=== PATIENT | female | born 1965 | race Caucasian/White ===

== ENCOUNTER 2018-09-25 20:05 | Emergency (ER) | payer MEDICARE, OTHER ==
[~2018-09-25] VITALS: Ht 157.5 cm; Wt 77.1 kg
[2018-09-25] MEDS ORDERED: TETANUS,DIPTH,PERTUSS P/F (BOOSTRIX) 0.5 ML VIAL IM ONE (21:00)
--- NOTE | 2018-09-25 21:10 | NUR ---
wounds cleaned with soap and water
--- NOTE | 2018-09-25 21:10 | ED Upper Extremity ---
General Chief Complaint: Bite-Animal/Human/Insect Stated Complaint: RT HAND DOG BITE Nursing Triage Note: pt trying to break up a fight between dogs and was bitten on right hand, minor abrasions noted, no bleeding, pt states dogs up to date on vaccines, pt unsure of her tetanus Nursing Sepsis Screen: No Definite Risk Source: patient History of Present Illness Date Seen by Provider: Sep 25, 2018 Time Seen by Provider: 20:51 Initial Comments 53 yo F presents with complaint of dog bite to her right hand and thumb. She has superficial abrasions to her thumb with some red costello on her hand that she reports are from when her dog bit her. She was trying to break up a fight between her dog and another dog. Her dog had bitten down on her hand as she was trying to break them up. She has already spoke with [employer]. She has no active bleeding now. She is not sure of her last tetanus. She was told that the dog was up to date on it's shots as it was from a family member. [employer] took the dog to keep it in quarantine for now. Allergies and Home Medications Allergies Coded Allergies: No Known Drug Allergies (Unverified , 09/25/18) Home Medications Amoxicillin/Potassium Clav 1 Each Tablet, 1 EACH PO BID Prescribed by: JORJE KUMAR on 09/25/180 Patient Home Medication List Home Medication List Reviewed: Yes Review of Systems Constitutional: No chills, No fever EENTM: no symptoms reported Respiratory: no symptoms reported Cardiovascular: no symptoms reported Gastrointestinal: no symptoms reported Genitourinary: no symptoms reported Musculoskeletal: other (mild swelling around the abrasions on her right thumb and hand ) Skin: see HPI, other (superficial abrasions on right thumb that she states are from the dog biting her) Past Fofqage-Opxkhh-Qoqllp Hx Past Med/Social Hx: Reviewed Nursing Past Med/Soc Hx Patient Social History Alcohol Use: Denies Use Recreational Drug Use: No Smoking Status: Current Everyday Smoker Type Used: Cigarettes Recent Foreign Travel: No Contact w/Someone Who Travel: No Recent Infectious Disease Expo: No Recent Hopitalizations: No Physical Abuse: No Sexual Abuse: No Mistreated: No Fear: No Seasonal Allergies Seasonal Allergies: No Past Medical History Surgeries: Yes Orthopedic Respiratory: No Cardiac: No Neurological: No Genitourinary: No Gastrointestinal: No Musculoskeletal: No Endocrine: No HEENT: No Cancer: No Psychosocial: No Integumentary: No Blood Disorders: No Physical Exam Vital Signs Vital Signs - First Documented 09/25/18 20:31 Temp 99.1 Pulse 94 Resp 20 B/P (MAP) 146/86 (106) Pulse Ox 96 O2 Delivery Room Air Capillary Refill : Less Than 3 Seconds Height, Weight, BMI Height: 5'2.00" Weight: 170lbs. oz. 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 no puncture wounds seen.) Progress/Results/Core Measures Results/Orders My Orders Orders - JORJE KUMAR MD Dipht,Pertuss(Acell),Tet Adult (Boostrix (09/25/18 21:00) Medications Given in ED Current Medications Medications Dose Ordered Sig/Aakash Route Start Time Stop Time Status Last Admin Dose Admin Diphtheria/ Tetanus/Acell Pertussis 0.5 ml ONCE ONCE IM 09/25/18 21:00 09/25/18 21:01 DC 09/25/18 21:06 0.5 ML Vital Signs/I&O 09/25/18 09/25/18 20:31 21:25 Temp 99.1 98.7 Pulse 94 80 Resp 20 16 B/P (MAP) 146/86 (106) 143/83 (103) Pulse Ox 96 97 O2 Delivery Room Air Room Air Blood Pressure Mean: 106 Progress Progress Note : Progress Note update tetanus booster, clean abrasions and dress with antibiotic ointment. Treat with augmentin for animal bite. Counseled to follow up with clinic Departure Impression Primary Impression: Dog bite Qualified Codes: W54.0XXA - Bitten by dog, initial encounter Additional Impression: Abrasion of right hand, initial encounter Disposition: HOME, SELF-CARE Condition: Stable Departure-Patient Inst. Decision time for Depature: 21:05 Referrals: NO,LOCAL PHYSICIAN (PCP) Primary Care Physician Patient Instructions: Animal Bites (DC), Skin Abrasions (DC) Add. Discharge Instructions: Keep wounds clean with soap and water. Apply antibiotic ointment 2 to 3 times a day and may cover with a dressing/band aid Watch for signs of infection and return or go to clinic for further concerns All discharge instructions reviewed with patient and/or family. Voiced understanding. Scripts Amoxicillin/Potassium Clav (Amox Tr-K Clv 875-125 mg Tab) 1 Each Tablet 1 EACH PO BID for dog bite for 7 Days, #14 TAB 0 Refills Prov: JORJE KUMAR MD 09/25/18 JORJE KUMAR MD Sep 25, 2018 21:10
[2018-09-25] MEDS ORDERED: AMOX1TAB12 PO (21:13)
[2018-09-25 21:25] VITALS: BP 143/83
== END 2018-09-25 21:25 | disposition home or self-care (01) ==
LOC: ER FS 20:08
DX: S60.371A Other superficial bite of right thumb, initial encounter (principal); S60.311A Abrasion of right thumb, initial encounter; F17.210 Nicotine dependence, cigarettes, uncomplicated; W54.0XXA Bitten by dog, initial encounter
CPT/HCPCS: 90471; 90715

== ENCOUNTER 2019-02-01 21:23 | Emergency (ER) | payer OTHER ==
[~2019-02-01] VITALS: Ht 157.5 cm; Wt 82.9 kg
[~2019-02-01 21:23] MED LIST: AMOX1TAB12 PO
--- NOTE | 2019-02-01 22:39 | ED Cough/URI ---
General Chief Complaint: Cough/Cold/Flu Symptoms Stated Complaint: COUGH/RAPID HR Nursing Triage Note: pt states cough for 2 weeks, seen in urgent care 2 days ago and started on amoxil and prednisone. pt doesnt think meds are working, states prednisone makes her heart race Sepsis Screen: No Definite Risk Source: patient History of Present Illness Date Seen by Provider: Feb 01, 2019 Time Seen by Provider: 22:39 Initial Comments 53 yo F presenting with over 2 weeks of cough and congestion. She does smoke still. She was seen in urgent care 2 days ago and started on amoxicillin 875 twice a day and prednisone. She feels that the prednisone is making her heart race and that the amoxicillin is not helping. She is coughing constantly and can't rest. She is not running a fever but feels that she has chills at times. She is mostly having a dry cough and not bringing anything up. It is a hacking cough. She feels that she needs a cough syrup to help. Allergies and Home Medications Allergies Coded Allergies: No Known Drug Allergies (Unverified , 09/25/18) Home Medications Amoxicillin/Potassium Clav 1 Each Tablet, 1 EACH PO BID Prescribed by: JORJE KUMAR on 09/25/182112 Promethazine/Phenyleph/Codeine 118 Ml Syrup, 5 ML PO Q6H PRN for COUGH Prescribed by: JORJE KUMAR on 02/02/19 0012 Patient Home Medication List Home Medication List Reviewed: Yes Review of Systems Review of Systems Constitutional: chills; No fever; malaise EENTM: hoarseness, throat pain (from coughing); No epistaxis, No nose congestion Respiratory: cough, dyspnea on exertion; No hemoptysis; short of breath; No stridor; wheezing Cardiovascular: chest pain (from coughing) Gastrointestinal: no symptoms reported Genitourinary: no symptoms reported Musculoskeletal: other (generalized bodyaches) Skin: No rash Psychiatric/Neurological: Anxiety Past Jcajfcm-Yihbjx-Plpagl Hx Past Med/Social Hx: Reviewed Nursing Past Med/Soc Hx Patient Social History Alcohol Use: Denies Use Recreational Drug Use: No Smoking Status: Current Everyday Smoker Type Used: Cigarettes 2nd Hand Smoke Exposure: Yes Recent Foreign Travel: No Contact w/Someone Who Travel: No Recent Infectious Disease Expo: No Recent Hopitalizations: No Physical Abuse: No Sexual Abuse: No Mistreated: No Fear: No Seasonal Allergies Seasonal Allergies: No Past Medical History Surgeries: Yes Orthopedic Respiratory: No Cardiac: No Neurological: No Genitourinary: No Gastrointestinal: No Musculoskeletal: No Endocrine: No HEENT: No Cancer: No Psychosocial: No Integumentary: No Blood Disorders: No Physical Exam Vital Signs - First Documented 02/01/19 21:47 Temp 36.4 Pulse 95 Resp 18 B/P (MAP) 167/80 (109) Pulse Ox 98 O2 Delivery Room Air Capillary Refill : Less Than 3 Seconds Height: 5'2.00" Weight: 170lbs. oz. 77.698928xj; 33.00 BMI Method:Stated General Appearance: mild distress HEENT: PERRL/EOMI, pharyngeal erythema; No tonsillar exudate Neck: non-tender, full range of motion, supple Respiratory: decreased breath sounds, accessory muscle use; No rales; rhonchi; No stridor; wheezing Cardiovascular: normal peripheral pulses, regular rate, rhythm Extremities: normal range of motion, non-tender, normal inspection Neurologic/Psychiatric: alert, oriented x 3 Skin: normal color, warm/dry Progress/Results/Core Measures Suspected Sepsis Recent Fever Within 48 Hours: No Infection Criteria Present: None New/Unexplained Altered Menta: No Sepsis Screen: No Definite Risk SIRS Temperature: Pulse: 95 Respiratory Rate: 18 Blood Pressure 167 /80 Mean: 109 Results/Orders My Orders Orders - JORJE KUMAR MD Albuterol/Ipra Inhalation Soln (Duoneb I (02/01/19 22:49) Svn Small Volume Nebulizer (02/01/19 22:49) Chest Pa/Lat (2 View) (02/01/19 22:49) Rx-Albuterol Inhaler (Rx-Proair) (02/01/19 23:42) Ceftriaxone For Im Use (Rocephin For Im (02/01/19 23:42) Methylprednisolone Acetate Inj (Depo-Med (02/01/19 23:42) Lidocaine 1% Inj 20 Ml (Xylocaine 1% Inj (02/01/19 23:45) Medications Given in ED Current Medications Medications Dose Ordered Sig/Aakash Route Start Time Stop Time Status Last Admin Dose Admin Lidocaine HCl 2.1 ml ONCE ONCE INJ 02/01/19 23:45 02/01/19 23:46 DC 02/01/19 23:53 2.1 ML Vital Signs/I&O 02/01/19 02/02/19 21:47 00:17 Temp 36.4 Pulse 95 84 Resp 18 18 B/P (MAP) 167/80 (109) 144/97 Pulse Ox 98 97 O2 Delivery Room Air Room Air Capillary Refill : Less Than 3 Seconds Blood Pressure Mean: 109 Progress Note #1: Progress Note Obtain a chest x-ray to evaluate her lungs. Try a DuoNeb breathing treatment see if that will help with her cough. Progress Note #2: Progress Note On my review of the 2 view chest x-ray she does not have any definite infiltrate. Give a Rocephin 1 g IM injection to help boost the amoxicillin. Stop the prednisone so she feels that it is making her heart race and given Depo-Medrol shots of to slow release to help try and prevent some of the side effects. Since the DuoNeb that helped with her cough and shortness of breath we will prescribe a albuterol inhaler. Since she is asking for cough syrup will prescribe couple of days of cough syrup to try and help her sleep. Encouraged fluids and rest. Advised to use a humidifier at the bedside. Counseled to stop smoking Departure Impression Primary Impression: Chronic bronchitis with acute exacerbation Additional Impressions: Cough Tobacco abuse Disposition: 01 HOME, SELF-CARE Condition: Stable Departure-Patient Inst. Decision time for Depature: 23:50 Referrals: NO,LOCAL PHYSICIAN (PCP) Primary Care Physician Patient Instructions: Bacterial Upper Respiratory Infection, Adult (DC), Cough, Adult (DC), Exacerbation of COPD (DC), Quitting Smoking Add. Discharge Instructions: Finish your course of antibiotics. You may stop the Prednisone as you got a slow release steroid shot tonight so it would not cause your heart to race. Use the inhaler to help with cough and congestion Use a humidifier at the bedside to help keep your airway moist to improve your cough Follow up with clinic if not improving this next week. All discharge instructions reviewed with patient and/or family. Voiced understanding. Scripts Promethazine/Phenyleph/Codeine (Lqbcsdrrexef-IT-Pksxboi Syrup) 118 Ml Syrup 5 ML PO Q6H PRN for COUGH for 5 Days, #100 ML 0 Refills Prov: JORJE KUMAR MD 02/02/19 JORJE KUMAR MD Feb 01, 2019 22:39
[2019-02-01] MEDS ORDERED: RT-ALBUTEROL/IPRATROPIUM 3 ML (DUONEB) VIAL INH STA (22:49)
[2019-02-01] MEDS ORDERED: methylPREDNISolone 80 MG/ML (DEPO MEDROL) VIAL IM STA (23:42)
[2019-02-01] MEDS ORDERED: cefTRIAXone 1,000 MG/2.86 ml vial (IM ONLY) IM STA (23:42)
[2019-02-01] MEDS ORDERED: RX-ALBUTEROL INHALER (PROAIR) 8.5 GM IH STA (23:42)
[2019-02-01] MEDS ORDERED: LIDOCAINE 1% INJ 20 ML 20 ML VIAL INJ ONE (23:45)
[2019-02-02] MEDS ORDERED: PROM118S PO (00:12)
[2019-02-02 00:17] VITALS: BP 144/97
--- NOTE | 2019-02-02 07:28 | Diagnostic Imaging Report ---
INDICATION: Cough for 2 weeks. Time of exam: 10:30 PM No prior studies are available for comparison. The heart size is normal. The pulmonary vascularity is unremarkable. The lungs are clear. No infiltrate, effusion or pneumothorax is detected. IMPRESSION: No acute cardiopulmonary process is detected. Dictated by: Dictated on workstation # [id number]
== END 2019-02-02 00:17 | disposition home or self-care (01) ==
LOC: EDUNIT# 21:23 → ER FS 21:25
DX: J20.9 Acute bronchitis, unspecified (principal); F17.210 Nicotine dependence, cigarettes, uncomplicated
CPT/HCPCS: 71046; 96372

== ENCOUNTER 2019-07-27 10:19 | Emergency (ER) | payer MEDICARE, OTHER ==
[~2019-07-27] VITALS: Ht 157.4 cm; Wt 80.0 kg
[~2019-07-27 10:19] MED LIST changes: +PROM118S PO
--- OUTSIDE RECORDS SUMMARY | 2019-07-27 10:26 | XMS REPORT | Continuity of Care Document ---
Author Organization Unknown Address Unknown Phone Unavailable Allergies Active Description Code Type Severity Reaction Onset Reported/Identified Relationship to Patient Clinical Status Yes No Known Drug Allergies [id number] Drug Allergy Unknown N/A 09/25/2018 Medications There is no data. Problems Date Dx Coded Attending Type Code Diagnosis Diagnosed By 09/25/2018 JORJE KUMAR MD Ot F17.2 10 NICOTINE DEPENDENCE, CIGARETTES, UNCOMPL 09/25/2018 JORJE KUMAR MD Ot S60.311A ABRASION OF RIGHT THUMB, INITIAL ENCOUNT 09/25/2018 JORJE KUMAR MD Ot S60.371A OTHER SUPERFICIAL BITE OF RIGHT THUMB, I 09/25/2018 JORJE KUMAR MD Ot S69.91XA UNSP INJURY OF RIGHT WRIST, HAND AND FIN 09/25/2018 JORJE KUMAR MD Ot W54.0XXA BITTEN BY DOG, INITIAL ENCOUNTER 09/30/2018 JORJE KUMAR MD, Ot F17.2 10 NICOTINE DEPENDENCE, CIGARETTES, UNCOMPL 09/30/2018 JORJE KUMAR MD Ot S60.311A ABRASION OF RIGHT THUMB, INITIAL ENCOUNT 09/30/2018 JORJE KUMAR MD Ot S60.371A OTHER SUPERFICIAL BITE OF RIGHT THUMB, I 09/30/2018 JORJE KUMAR MD Ot S69.91XA UNSP INJURY OF RIGHT WRIST, HAND AND FIN 09/30/2018 JORJE KUMAR MD Ot W54.0XXA BITTEN BY DOG, INITIAL ENCOUNTER 10/25/2018 JORJE KUMAR MD Ot F17.2 10 NICOTINE DEPENDENCE, CIGARETTES, UNCOMPL 10/25/2018 JORJE KUMAR MD Ot S60.311A ABRASION OF RIGHT THUMB, INITIAL ENCOUNT 10/25/2018 JORJE KUMAR MD Ot S69.91XA UNSP INJURY OF RIGHT WRIST, HAND AND FIN 10/25/2018 JORJE KUMAR MD Ot W54.0XXA BITTEN BY DOG, INITIAL ENCOUNTER 02/02/2019 JORJE KUMAR MD, Ot F17.2 10 NICOTINE DEPENDENCE, CIGARETTES, UNCOMPL 02/02/2019 JORJE KUMAR MD, Ot J20.9 ACUTE BRONCHITIS, UNSPECIFIED 02/02/2019 JORJE KUMAR MD, Ot R05 COUGH 02/06/2019 JORJE KUMAR MD, Ot F17.2 10 NICOTINE DEPENDENCE, CIGARETTES, UNCOMPL 02/06/2019 JORJE KUMAR MD, Ot J20.9 ACUTE BRONCHITIS, UNSPECIFIED 02/06/2019 JORJE KUMAR MD, Ot R05 COUGH Procedures There is no data. Results Test Result Range CBC w/MANUAL DIFF - 06/12/19 15:46 WHITE BLOOD CELL COUNT 6.2 Thousand/uL 3 .8-10.8 RED BLOOD CELL COUNT 4.66 Million/uL 3.8 0-5.10 HEMOGLOBIN 14.6 g/dL 11.7-15.5 HEMATOCRIT 42.5 % 35.0-45.0 MCV 91.2 fL 80.0-100.0 MCH 31.3 pg 27.0-33.0 MCHC 34.4 g/dL 32.0-36.0 RDW 12.2 % 11.0-15.0 PLATELET COUNT 265 Thousand/uL 140-400 MPV 10.5 fL 7.5-12.5 ABSOLUTE NEUTROPHILS 3894 cells/uL 1500- 7800 ABSOLUTE MONOCYTES 298 cells/uL 200-950 ABSOLUTE EOSINOPHILS 180 cells/uL 15-500 ABSOLUTE BASOPHILS 0 cells/uL 0-200 NEUTROPHILS 62.8 % NRG LYMPHOCYTES 29.5 % NRG MONOCYTES 4.8 % NRG EOSINOPHILS 2.9 % NRG BASOPHILS 0 % NRG ABSOLUTE LYMPHOCYTES 1829 cells/uL 850-3 900 PLATELET ESTIMATION ADEQUATE ADEQUATE CBC MORPHOLOGY NORMAL COMMENT(S) NRG [place] DISEASE, ANTIBODY PANEL - 08/24 15:46 LYME AB SCREEN <0.90 index NRG INTERPRETATION NRG A. PHAGOCYTOPHILUM AB (IGG) <1:64 NR G A. PHAGOCYTOPHILUM AB (IGM) <1:20 NR G INTERPRETATION NRG BABESIA DUNCANI (WA1) ANTIBODY (IGG), IFA <1:256 NRG BABESIA MICROTI AB (IGG) <1:64 titer NRG BABESIA MICROTI AB (IGM) <1:20 titer NRG INTERPRETATION NRG E. CHAFFEENSIS AB IGG <1:64 NRG E. CHAFFEENSIS AB IGM <1:20 NRG Encounters ACCT No. Visit Date/Time Discharge Status Pt. Type Provider Facility Loc./Unit Complaint [id number] 08/02/2018 14:10:00 08/02/2018 23:59: 59 CLS Outpatient SELINA JHA L[facility] [id number] 06/12/2019 14:40:00 Document Registration [id number] 02/01/2019 21:25:00 019 00:17:00 DIS Emergency JORJE KUMAR MD [facility] ER FS COUGH/RAPID HR [id number] 09/25/2018 20:08:00 019 21:25:00 DIS Emergency JORJE KUMAR MD [facility] ER FS RT HAND DOG BITE
[2019-07-27] MEDS ORDERED: HYDROcodone/APAP 5 MG/325 MG (LORTAB) TAB PO ONE (11:15)
--- NOTE | 2019-07-27 11:52 | Diagnostic Imaging Report ---
HISTORY: Pain and swelling in the right 3rd finger after trauma TECHNIQUE: 3 views of the right hand COMPARISON: None FINDINGS: No acute fracture or dislocation is seen in the right hand. Alignment is normal. Joint spaces are generally preserved. There are cystlike changes in the distal scaphoid, likely degenerative. No cortical erosions are seen. There is soft tissue swelling about the right 3rd finger PIP joint. IMPRESSION: 1. Soft tissue swelling about the right 3rd finger PIP joint with no acute osseous abnormality seen in the right hand. Dictated by: Dictated on workstation # [id number]
--- NOTE | 2019-07-27 12:05 | ED Upper Extremity ---
General Chief Complaint: Upper Extremity Stated Complaint: RT FINGER INJ History of Present Illness Date Seen by Provider: Jul 27, 2019 Time Seen by Provider: 12:00 Initial Comments Patient presenting to emergency department for evaluation of right middle finger pain status post injury. She is unsure of exactly what happened there was a flexion or extension and that she got her finger caught in her dog's collar and her dog was running uncontrollably and she said it felt like her finger was turning and now her proximal phalange he is swollen and tender on her right middle finger. Allergies and Home Medications Allergies Coded Allergies: No Known Drug Allergies (Unverified , 09/25/18) Home Medications Amoxicillin/Potassium Clav 1 Each Tablet, 1 EACH PO BID Prescribed by: JORJE KUMAR on 09/25/182112 Promethazine/Phenyleph/Codeine 118 Ml Syrup, 5 ML PO Q6H PRN for COUGH Prescribed by: JORJE KUMAR on 02/02/19 0012 Patient Home Medication List Home Medication List Reviewed: Yes Review of Systems Constitutional: no symptoms reported Musculoskeletal: joint pain, joint swelling Skin: no symptoms reported Psychiatric/Neurological: No Symptoms Reported Past Akxqapf-Vyecbb-Jlczpc Hx Patient Social History Type Used: Cigarettes 2nd Hand Smoke Exposure: Yes Recent Foreign Travel: No Contact w/Someone Who Travel: No Recent Hopitalizations: No Seasonal Allergies Seasonal Allergies: No Past Medical History Surgeries: Yes Orthopedic Respiratory: No Cardiac: No Neurological: No Genitourinary: No Gastrointestinal: No Musculoskeletal: No Endocrine: No HEENT: No Cancer: No Psychosocial: No Integumentary: No Blood Disorders: No Physical Exam Vital Signs Capillary Refill : Height, Weight, BMI Height: 5'2.00" Weight: 170lbs. oz. 77.218520lr; 33.00 BMI Method:Stated General Appearance: WD/WN Wrist: Yes normal inspection, Yes normal ROM Hand: Right (middle finger with pain and swelling at proximal phalange and flexor tendon distribution on hand. 5/5 strength in flex/ext of digit. Normal sensation and cap refill) Neurologic/Tendon: normal sensation, normal motor functions Neurologic/Psychiatric: no motor/sensory deficits Skin: warm/dry Progress/Results/Core Measures Results/Orders My Orders Orders - KAITY VALERA DO Hand 3 View Right (07/27/19 11:09) Hydrocodone/Apap 5/325 Tablet (Lortab 5 (07/27/19 11:15) Medications Given in ED Current Medications Medications Dose Ordered Sig/Aakash Route Start Time Stop Time Status Last Admin Dose Admin Acetaminophen/ Hydrocodone Bitart 2 tab ONCE ONCE PO 07/27/19 11:15 07/27/19 11:16 DC 07/27/19 11:25 2 TAB Progress Progress Note : Progress Note No obvious bony abnormalities but there is soft tissue swelling. I suspect that she has a flexor tendon sprain but no signs of a full-tear. She will have the digits emily taped I told her to use ibuprofen for pain and the rice precautions follow with or the was no patient and come back to the ED sooner with worsening pain neurologic changes or other general concerns. She is NV intact pre and p ost splinting. Departure Impression Primary Impression: Sprain of finger, right Qualified Codes: S63.612A - Unspecified sprain of right middle finger, initial encounter Disposition: HOME, SELF-CARE Condition: Stable Departure-Patient Inst. Referrals: NO,LOCAL PHYSICIAN (PCP/Family) Primary Care Physician Gael Wright Patient Instructions: Finger Sprain (DC) Add. Discharge Instructions: RICE, nsaids, ortho f/u All discharge instructions reviewed with patient and/or family. Voiced understanding. KAITY VALERA DO Jul 27, 2019 12:05
[2019-07-27 12:15] VITALS: BP 119/82
--- NOTE | 2019-07-27 12:15 | NUR ---
Pt discharged to home after review of home instructions and emily taping right third finger to 4th finger.
== END 2019-07-27 12:15 | disposition home or self-care (01) ==
LOC: EDUNIT# 10:19 → ER FS 10:21
DX: S63.612A Unspecified sprain of right middle finger, initial encounter (principal); Z77.22 Contact with and (suspected) exposure to environmental tobacco smoke (acute) (chronic); W23.1XXA Caught, crushed, jammed, or pinched between stationary objects, initial encounter
CPT/HCPCS: 73130

== ENCOUNTER → 2019-09-15 | Outpatient (CLI) | payer MEDICARE ==
--- NOTE | 2019-09-15 12:39 | Diagnostic Imaging Report ---
INDICATION: Low back pain. TIME OF EXAM: 12:13 PM. TECHNIQUE: Frontal and lateral views of the lumbar spine were obtained. FINDINGS: There is grade 2 spondylolisthesis of L4 on L5 with bilateral pars defects. The alignment at the remaining levels is normal. There is normal curvature. The vertebral body heights are maintained. There is severe degenerative disc disease at the L4-5 level with disc space narrowing and marginal spurring. IMPRESSION: Spondylolysis and spondylolisthesis of L4 on L5 with associated degenerative disc disease. No acute bony abnormality is detected. Dictated by: Dictated on workstation # [id number]
== END ==
LOC: RAD FS 12:01
PROVIDERS: ATTEND Nurse Practitioner Family
DX: M47.816 Spondylosis without myelopathy or radiculopathy, lumbar region (principal); M43.16 Spondylolisthesis, lumbar region; M51.36 Other intervertebral disc degeneration, lumbar region
CPT/HCPCS: 72100

== ENCOUNTER 2020-02-28 20:27 | Emergency (ER) | payer MEDICARE ==
[~2020-02-28] VITALS: Ht 157.5 cm; Wt 88.0 kg
--- NOTE | 2020-02-28 20:33 | ED EENT ---
History of Present Illness General Chief Complaint: Ear Problems Stated Complaint: RIGHT EAR PAIN History of Present Illness Date Seen by Provider: Feb 28, 2020 Time Seen by Provider: 20:33 Initial Comments 54-year-old female presents with concerns for something in her right ear. Patient reports that earlier this evening she thought she felt something move and it may be thought she heard something buzzing. Patient does not have that sensation at this time. She presents because she wants to be evaluated. She has no other systemic complaints Allergies and Home Medications Allergies Coded Allergies: No Known Drug Allergies (Unverified , 09/25/18) Home Medications Amoxicillin/Potassium Clav 1 Each Tablet, 1 EACH PO BID Prescribed by: JORJE KUMAR on 09/25/182112 Promethazine/Phenyleph/Codeine 118 Ml Syrup, 5 ML PO Q6H PRN for COUGH Prescribed by: JORJE KUMAR on 02/02/19 0012 Patient Home Medication List Home Medication List Reviewed: Yes Review of Systems Review of Systems Constitutional: No chills, No fever Ears: See HPI Nose: no symptoms reported Mouth: no symptoms reported Throat: no symptoms reported Respiratory: no symptoms reported Musculoskeletal: no symptoms reported Past Pbukrhd-Iiouyi-Ooowqw Hx Past Med/Social Hx: Reviewed Nursing Past Med/Soc Hx Patient Social History Type Used: Cigarettes 2nd Hand Smoke Exposure: Yes Recent Hopitalizations: No Seasonal Allergies Seasonal Allergies: No Past Medical History Surgeries: Yes Orthopedic Respiratory: No Cardiac: No Neurological: No Genitourinary: No Gastrointestinal: No Musculoskeletal: No Endocrine: No HEENT: No Cancer: No Psychosocial: No Integumentary: No Blood Disorders: No Physical Exam Height, Weight, BMI Height: 5'2.00" Weight: 170lbs. oz. 77.921120zx; 32.00 BMI Method:Stated General Appearance: WD/WN, no apparent distress Eyes: bilateral eye normal inspection Ears: bilateral ear auricle normal, bilateral ear canal normal, bilateral ear TM normal Mouth/Throat: normal mouth inspection Cardiovascular: regular rate, rhythm Respiratory: no respiratory distress, no accessory muscle use Neurologic/Psychiatric: alert Skin: normal color, warm/dry Progress/Results/Core Measures Progress Progress Note : Time: 20:40 Progress Note Patient with normal inspection of ear canal and eardrum with no foreign body or abnormality noted. If she continues to have foreign body sensation or buzzing she should follow-up with her primary care provider or ENT for further evaluation Departure Impression Primary Impression: Ear problem Qualified Codes: H93.91 - Unspecified disorder of right ear Disposition: 01 HOME, SELF-CARE Condition: Stable Departure-Patient Inst. Referrals: [facility] (PCP/Family) Primary Care Physician Add. Discharge Instructions: Follow-up with your primary care provider or ENT if you continue to have foreign body sensation, ringing or buzzing in your ears. All discharge instructions reviewed with patient and/or family. Voiced understanding. ROSIBEL ESPINO DO Feb 28, 2020 20:33
[2020-02-28 20:38] VITALS: BP 157/81
== END 2020-02-28 20:42 | disposition home or self-care (01) ==
LOC: EDUNIT# 20:27 → ER FS 20:30
DX: H93.91 Unspecified disorder of right ear (principal); Z77.22 Contact with and (suspected) exposure to environmental tobacco smoke (acute) (chronic)
CPT/HCPCS: 99282

== ENCOUNTER → 2021-06-09 | Outpatient (CLI) | payer MEDICARE | LOC: CARDFS 14:26 | PROVIDERS: ATTEND Nurse Practitioner Family | DX: R60.9 Edema, unspecified (principal) | CPT/HCPCS: 93306 ==

== ENCOUNTER 2021-12-26 17:11 | Emergency (ER) | payer MEDICARE ==
[~2021-12-26] VITALS: Ht 157 cm; Wt 85.0 kg
[2021-12-26] MEDS ORDERED: ORPHENADRINE 60 MG/2 ML (NORFLEX) AMP (ED ONLY) IVP STA (17:22)
[2021-12-26] MEDS ORDERED: KETOROLAC 30 MG/ML VIAL IVP STA (17:22)
--- NOTE | 2021-12-26 17:30 | ED General ---
General Stated Complaint: GROIN PAIN Source of Information: Patient History of Present Illness Date Seen by Provider: Dec 26, 2021 Time Seen by Provider: 17:13 Initial Comments 56-year-old female presenting with complaints of increasing pain in her groin and pelvis since yesterday. She states that she was lifting some cans and trying to squat down and the dog kennel when the pain started. She has not taken anything for pain at home. She felt like the pain was getting worse and keeping her from being able to walk so she came to the clinic today. However when she got to the clinic she was having so much pain that they told her she had to come to the emergency department because they were not able to do testing or help with her pain. Patient denies any pain with urination, nausea, vomiting, constipation, diarrhea, vaginal discharge. She denies having symptoms like this previously. She has no radiation to her back. Timing/Duration: 1 Day Severity: Severe Modifying Factors: worse with Movement Associated Systoms: No Chest Pain, No Cough, No Diaphoresis, No Fever/Chills, No Headaches, No Loss of Appetite, No Malaise, No Nausea/Vomiting, No Rash, No Seizure, No Shortness of Air, No Syncope, No Weakness Allergies and Home Medications Allergies Coded Allergies: No Known Drug Allergies (Unverified , 09/25/18) Patient Home Medication List Home Medication List Reviewed: Yes Amoxicillin/Potassium Clav (Amox Tr-K Clv 875-125 mg Tab) 1 Each Tablet, 1 EACH PO BID Prescribed by: JORJE KUMAR on 09/25/182112 Ibuprofen (Ibuprofen) 800 Mg Tablet, 800 MG PO Q8H PRN for PAIN Prescribed by: JORJE KUMAR on 12/26/211818 Methocarbamol (Methocarbamol) 750 Mg Tablet, 1,500 MG PO Q8H PRN for muscle spasm/groin pain Prescribed by: JORJE KUMAR on 12/26/211818 Promethazine/Phenyleph/Codeine (Lskbgiewilmi-CH-Dwbpmpa Syrup) 118 Ml Syrup, 5 ML PO Q6H PRN for COUGH Prescribed by: JORJE KUMAR on 02/02/19 0012 Tramadol HCl (Tramadol HCl) 50 Mg Tablet, 50 MG PO Q6H PRN for PAIN-SEVERE (8- 10) Prescribed by: JORJE KUMAR on 12/26/21 1819 Review of Systems Review of Systems Constitutional: No chills, No fever EENTM: no symptoms reported Respiratory: no symptoms reported Cardiovascular: no symptoms reported Gastrointestinal: see HPI Genitourinary: see HPI; No dysuria Musculoskeletal: see HPI (Pelvic pain and groin pain) Skin: No change in color, No rash Psychiatric/Neurological: Denies Numbness, Denies Paresthesia Past Iafskwi-Utwnzd-Fkgmbd Hx Patient Social History Tobacco Use?: Yes Use of E-Cig and/or Vaping dev: No Substance use?: No Alcohol Use?: No Seasonal Allergies Seasonal Allergies: No Past Medical History Surgery/Hospitalization HX: Hypercholesterolemia, Hypertension Surgeries: Yes Orthopedic Respiratory: No Cardiac: No Neurological: No Genitourinary: No Gastrointestinal: No Musculoskeletal: No Endocrine: No HEENT: No Cancer: No Psychosocial: No Integumentary: No Blood Disorders: No Physical Exam Vital Signs Vital Signs - First Documented 12/26/21 17:47 Temp 36.5 Pulse 92 Resp 18 B/P (MAP) 173/87 (115) Pulse Ox 99 O2 Delivery Room Air Capillary Refill : Height, Weight, BMI Height: 5'2.00" Weight: 170lbs. oz. 77.665130tq; 35.00 BMI Method:Stated General Appearance: Anxious, Obese HEENT: PERRL/EOMI, Pharynx Normal Neck: Full Range of Motion, Normal Inspection, Non Tender, Supple Respiratory: Chest Non Tender, Lungs Clear, Normal Breath Sounds, No Accessory Muscle Use, No Respiratory Distress Cardiovascular: Regular Rate, Rhythm, Normal Peripheral Pulses Gastrointestinal: Normal Bowel Sounds, No Pulsatile Mass, Non Tender, Soft Rectal: Deferred Extremity: Normal Capillary Refill, No Calf Tenderness, No Pedal Edema, Other (Pelvis is stable but complains of pain to palpation in lower pelvis and bilateral groin area) Neurologic/Psychiatric: Alert, Oriented x3 Skin: Normal Color, Warm/Dry Progress/Results/Core Measures Suspected Sepsis SIRS Temperature: Pulse: Respiratory Rate: Laboratory Tests 12/26/21 17:33: White Blood Count 7.9 Blood Pressure / Mean: Laboratory Tests 12/26/21 17:33: Creatinine 0.54L, Platelet Count 247, Total Bilirubin 0.8 Results/Orders Lab Results Laboratory Tests Test 12/26/21 17:33 12/26/21 17:40 Range/Units White Blood Count 7.9 4.3-11.0 10^3/uL Red Blood Count 4.75 3.80-5.11 10^6/uL Hemoglobin 14.6 11.5-16.0 g/dL Hematocrit 43 35-52 % Mean Corpuscular Volume 91 80-99 fL Mean Corpuscular Hemoglobin 31 25-34 pg Mean Corpuscular Hemoglobin Concent 34 32-36 g/dL Red Cell Distribution Width 12.6 10.0-14.5 % Platelet Count 247 130-400 10^3/uL Mean Platelet Volume 9.3 9.0-12.2 fL Immature Granulocyte % (Auto) 0 % Neutrophils (%) (Auto) 67 42-75 % Lymphocytes (%) (Auto) 22 12-44 % Monocytes (%) (Auto) 9 0-12 % Eosinophils (%) (Auto) 1 0-10 % Basophils (%) (Auto) 1 0-10 % Neutrophils # (Auto) 5.4 1.8-7.8 10^3/uL Lymphocytes # (Auto) 1.7 1.0-4.0 10^3/uL Monocytes # (Auto) 0.7 0.0-1.0 10^3/uL Eosinophils # (Auto) 0.1 0.0-0.3 10^3/uL Basophils # (Auto) 0.0 0.0-0.1 10^3/uL Immature Granulocyte # (Auto) 0.0 0.0-0.1 10^3/uL Sodium Level 138 135-145 MMOL/L Potassium Level 4.2 3.6-5.0 MMOL/L Chloride Level 102 98-107 MMOL/L Carbon Dioxide Level 24 21-32 MMOL/L Anion Gap 12 5-14 MMOL/L Blood Urea Nitrogen 11 7-18 MG/DL Creatinine 0.54 L 0.60-1.30 MG/DL Estimat Glomerular Filtration Rate 109 BUN/Creatinine Ratio 20 Glucose Level 145 H 70-105 MG/DL Calcium Level 9.6 8.5-10.1 MG/DL Corrected Calcium 9.4 8.5-10.1 MG/DL Total Bilirubin 0.8 0.1-1.0 MG/DL Aspartate Amino Transf (AST/SGOT) 20 5-34 U/L Alanine Aminotransferase (ALT/SGPT) 21 0-55 U/L Alkaline Phosphatase 150 H 40-136 U/L Total Protein 7.7 6.4-8.2 GM/DL Albumin 4.2 3.2-4.5 GM/DL Urine Color YELLOW Urine Clarity CLEAR Urine pH 6.0 5-9 Urine Specific Riva 1.020 1.016-1.022 Urine Protein NEGATIVE NEGATIVE Urine Glucose (UA) NEGATIVE NEGATIVE Urine Ketones NEGATIVE NEGATIVE Urine Nitrite NEGATIVE NEGATIVE Urine Bilirubin NEGATIVE NEGATIVE Urine Urobilinogen 2.0 < = 1.0 MG/DL Urine Leukocyte Esterase NEGATIVE NEGATIVE Urine RBC (Auto) NEGATIVE NEGATIVE Urine RBC NONE /HPF Urine WBC RARE /HPF Urine Squamous Epithelial Cells 10-25 H /HPF Urine Crystals NONE /LPF Urine Bacteria TRACE /HPF Urine Casts NONE /LPF Urine Mucus SMALL H /LPF Urine Culture Indicated NO My Orders Orders - JORJE KUMAR MD Comprehensive Metabolic Panel (12/26/21 17:22) Ua Culture If Indicated (12/26/21 17:22) Ed Iv/Invasive Line Start (12/26/21 17:22) Cbc With Automated Diff (12/26/21 17:22) Ct Abdomen/Pelvis Wo (12/26/21 17:22) Ketorolac Injection (Toradol Injection) (12/26/21 17:22) Orphenadrine Inj (Ed Only) (Norflex Inje (12/26/21 17:22) Ns Iv 1000 Ml (Sodium Chloride 0.9%) (12/26/21 17:31) Ondansetron Injection (Zofran Injectio (12/26/21 17:39) Fentanyl Inj (Sublimaze Injection) (12/26/21 18:30) Vital Signs/I&O 12/26/21 17:47 Temp 36.5 Pulse 92 Resp 18 B/P (MAP) 173/87 (115) Pulse Ox 99 O2 Delivery Room Air Capillary Refill : Progress Note #1: Progress Note Obtain basic labs to look for signs of infection or electrolyte imbalance. CT scan of the abdomen and pelvis without IV contrast to look for acute pathology in her pelvis and groin that likely contributing to her pain and symptoms. Administer normal saline 1 L IV fluid bolus for hydration and Toradol 30 mg IV for pain with Norflex 60 mg IV for possible muscle spasms and pain. Progress Note #2: Progress Note CBC without acute significant abnormality. WBC count normal and not anemic. Chemistry without acute significant abnormality as well. UA does not show infection or acute significant abnormality. CT scan abdomen/pelvis without contrast read by radiologist as no acute process. Will reassure patient and can continue medicine for pain and inflammation as well as muscle relaxer for groin strain/pull. Check back with clinic if not improving. When reviewing results with patient and spouse she was still having some pain so order Fentanyl 50 mcg IV x 1 while her goes to get prescriptions from [facility] and then they will see about arranging for a ride home since she can not drive herself. Diagnostic Imaging Diagonstic Imaging: CT Plain Films/CT/US/NM/MRI: abdomen, pelvis Comments NAME: SHY DEVINE [facility] REC#: [id number] PT STATUS: REG ER : 1965 PHYSICIAN: JORJE KUMAR MD ADMIT DATE: 12/26/21/ER FS Draft Date of Exam:12/26/21 CT ABDOMEN/PELVIS WO PROCEDURE: CT abdomen and pelvis without contrast. TECHNIQUE: Multiple contiguous axial images were obtained through the abdomen and pelvis without the use of intravenous contrast. Auto Exposure Controls were utilized during the CT exam to meet ALARA standards for radiation dose reduction. INDICATION: Groin pain after lifting. FINDINGS: The lung bases are clear. The liver appears normal. The gallbladder appears normal. The pancreas appears normal. The spleen appears normal. Kidneys and adrenals appear normal. Appendix is normal. Small bowel is unremarkable. The colon appears normal. Uterus appears normal. Urinary bladder is normal. Colon is unremarkable. There is no intraperitoneal free air or free fluid. There is no hernia seen. Hip joints are unremarkable. IMPRESSION: Negative CT abdomen and pelvis. Dictated on workstation # [id number] Dict: 12/26/21 180 Trans: 12/26/21 180 [id number] Interpreted by: MAGDALENA GREEN MD Electronically signed by: Departure Impression Primary Impression: Bilateral groin pain Additional Impression: Groin strain Qualified Codes: S76.219A - Strain of adductor muscle, fascia and tendon of unspecified thigh, initial encounter Disposition: HOME, SELF-CARE Condition: Stable Departure-Patient Inst. Decision time for Depature: 18:16 Referrals: FABIOFABY Gardner APRN (PCP) Primary Care Physician [facility] (Family) Primary Care Physician Patient Instructions: Groin Strain ED, Pelvic Pain ED Add. Discharge Instructions: Continue with anti-inflammatory and muscle relaxer. Check back with clinic for continued pain if not improving with treatment. Scripts Methocarbamol (Methocarbamol) 750 Mg Tablet 1500 MG PO Q8H PRN for muscle spasm/groin pain for 7 Days, #42 TAB 0 Refills Prov: JORJE KUMAR MD 12/26/21 Tramadol HCl (Tramadol HCl) 50 Mg Tablet 50 MG PO Q6H PRN for PAIN-SEVERE (8-10) for 5 Days, #20 TAB 0 Refills Prov: JORJE KUMAR MD 12/26/21 Ibuprofen (Ibuprofen) 800 Mg Tablet 800 MG PO Q8H PRN for PAIN for 10 Days, #30 TAB 0 Refills Prov: JORJE KUMAR MD 12/26/21 JORJE KUMAR MD Dec 26, 2021 17:30
[2021-12-26] MEDS ORDERED: NS IV 1000 ML 1,000 ML IV STA (17:31)
[2021-12-26 17:38] LABS: BASOPHILS % (AUTO) 1 % (0-10); EOSINOPHILS # (AUTO) 0.1 10^3/uL (0.0-0.3); EOSINOPHILS % (AUTO) 1 % (0-10); HEMATOCRIT 43 % (35-52); HEMOGLOBIN 14.6 g/dL (11.5-16.0); LYMPHOCYTES # (AUTO) 1.7 10^3/uL (1.0-4.0); LYMPHOCYTES % (AUTO) 22 % (12-44); MEAN CORPUSCULAR HEMOGLOBIN 31 pg (25-34); MEAN CORPUSCULAR HGB CONC 34 g/dL (32-36); MEAN CORPUSCULAR VOLUME 91 fL (80-99); MEAN PLATELET VOLUME 9.3 fL (9.0-12.2); MONOCYTES # (AUTO) 0.7 10^3/uL (0.0-1.0); MONOCYTES % (AUTO) 9 % (0-12); NEUTROPHILS # (AUTO) 5.4 10^3/uL (1.8-7.8); NEUTROPHILS % (AUTO) 67 % (42-75); PLATELET COUNT 247 10^3/uL (130-400); WHITE BLOOD COUNT 7.9 10^3/uL (4.3-11.0)
[2021-12-26] MEDS ORDERED: ONDANSETRON 4 MG/2 ML (SDV) Z0FRAN IVP STA (17:39)
[2021-12-26 17:47] VITALS: BP 173/87
[2021-12-26 17:47] LABS: BILIRUBIN,URINE NEGATIVE (NEGATIVE); CLARITY,URINE CLEAR; COLOR,URINE YELLOW; GLUCOSE, URINE (UA) NEGATIVE (NEGATIVE); KETONES,URINE NEGATIVE (NEGATIVE); LEUKOCYTE ESTERASE ,URINE NEGATIVE (NEGATIVE); NITRITE,URINE NEGATIVE (NEGATIVE); PROTEIN,URINE NEGATIVE (NEGATIVE)
[2021-12-26 17:53] LABS: BACTERIA,URINE TRACE /HPF; WBC,URINE RARE /HPF
[2021-12-26 18:00] LABS: POTASSIUM 4.2 MMOL/L (3.6-5.0)
[2021-12-26 18:01] LABS: ALBUMIN 4.2 GM/DL (3.2-4.5); BILIRUBIN,TOTAL 0.8 MG/DL (0.1-1.0); CALCIUM 9.6 MG/DL (8.5-10.1); CREATININE SERUM 0.54 MG/DL (0.60-1.30); TOTAL PROTEIN 7.7 GM/DL (6.4-8.2)
--- NOTE | 2021-12-26 18:06 | Diagnostic Imaging Report ---
PROCEDURE: CT abdomen and pelvis without contrast. TECHNIQUE: Multiple contiguous axial images were obtained through the abdomen and pelvis without the use of intravenous contrast. Auto Exposure Controls were utilized during the CT exam to meet ALARA standards for radiation dose reduction. INDICATION: Groin pain after lifting. FINDINGS: The lung bases are clear. The liver appears normal. The gallbladder appears normal. The pancreas appears normal. The spleen appears normal. Kidneys and adrenals appear normal. Appendix is normal. Small bowel is unremarkable. The colon appears normal. Uterus appears normal. Urinary bladder is normal. Colon is unremarkable. There is no intraperitoneal free air or free fluid. There is no hernia seen. Hip joints are unremarkable. IMPRESSION: Negative CT abdomen and pelvis. Dictated by: Dictated on workstation # [id number]
[2021-12-26] MEDS ORDERED: IBUP-1780 PO (18:19)
[2021-12-26] MEDS ORDERED: METH-732 PO (18:19)
[2021-12-26] MEDS ORDERED: TRM50T PO (18:19)
[2021-12-26] MEDS ORDERED: fentaNYL INJ 100 MCG/2 ML AMP IVP STA (18:30)
== END 2021-12-26 19:35 | disposition home or self-care (01) ==
LOC: EDUNIT# 17:11 → ER FS 17:13
DX: S39.011A Strain of muscle, fascia and tendon of abdomen, initial encounter (principal); E66.9 Obesity, unspecified; Z68.35 Body mass index [BMI] 35.0-35.9, adult; Z28.310 Unvaccinated for COVID-19; X50.0XXA Overexertion from strenuous movement or load, initial encounter
CPT/HCPCS: 36415; 74176; 80053; 81000; 85025

== ENCOUNTER 2022-07-13 21:23 | Emergency (ER) | payer MEDICARE ==
[~2022-07-13] VITALS: Ht 157.5 cm; Wt 86.6 kg
[~2022-07-13 21:23] MED LIST changes: +IBUP-1780 PO; +METH-732 PO; +TRM50T PO
--- NOTE | 2022-07-13 21:50 | ED General ---
General Stated Complaint: FEET/LEG SWELLING/PAIN History of Present Illness Date Seen by Provider: Jul 13, 2022 Time Seen by Provider: 21:50 Initial Comments 57-year-old female presents with lower extremity lower leg swelling and feet swelling. Is been going on for at least 2 or 3 weeks. She comes in tonight because of increasing pain. She has an appointment with her primary care provider but not until August 17. She is currently on lisinopril and atorvastatin for medications. She does not use a lot of ibuprofen. Allergies and Home Medications Allergies Coded Allergies: No Known Drug Allergies (Unverified , 09/25/18) Patient Home Medication List Home Medication List Reviewed: Yes Amoxicillin/Potassium Clav (Amox Tr-K Clv 875-125 mg Tab) 1 Each Tablet, 1 EACH PO BID Prescribed by: JORJE KUMAR on 09/25/182112 Ibuprofen (Ibuprofen) 800 Mg Tablet, 800 MG PO Q8H PRN for PAIN Prescribed by: JORJE KUMAR on 12/26/211818 Methocarbamol (Methocarbamol) 750 Mg Tablet, 1,500 MG PO Q8H PRN for muscle spasm/groin pain Prescribed by: JORJE KUMAR on 12/26/211818 Promethazine/Phenyleph/Codeine (Bwvehklcdkbx-CW-Xyrwxmo Syrup) 118 Ml Syrup, 5 ML PO Q6H PRN for COUGH Prescribed by: JORJE KUMAR on 02/02/19 001 Tramadol HCl (Tramadol HCl) 50 Mg Tablet, 50 MG PO Q6H PRN for PAIN-SEVERE (8- 10) Prescribed by: JORJE KUMAR on 12/26/211818 Review of Systems Review of Systems Constitutional: no symptoms reported Cardiovascular: see HPI, edema Genitourinary: no symptoms reported Musculoskeletal: see HPI Skin: no symptoms reported Psychiatric/Neurological: No Symptoms Reported Hematologic/Lymphatic: No Symptoms Reported Past Rvhzjoz-Wdtrkm-Jcvafx Hx Seasonal Allergies Seasonal Allergies: No Past Medical History Surgery/Hospitalization HX: Hypercholesterolemia, Hypertension Surgeries: Yes Orthopedic Respiratory: No Cardiac: No Neurological: No Genitourinary: No Gastrointestinal: No Musculoskeletal: No Endocrine: No HEENT: No Cancer: No Psychosocial: No Integumentary: No Blood Disorders: No Physical Exam Vital Signs Capillary Refill : Height, Weight, BMI Height: 5'2.00" Weight: 170lbs. oz. 77.529420qn; 34.00 BMI Method:Stated General Appearance: No Apparent Distress, WD/WN HEENT: TMs Normal, Moist Mucous Membranes Respiratory: Lungs Clear, Normal Breath Sounds, No Accessory Muscle Use Cardiovascular: Regular Rate, Rhythm, Other (Mild lower extremity edema bilat eral 1+) Gastrointestinal: Non Tender, Soft Neurologic/Psychiatric: Alert, Oriented x3, No Motor/Sensory Deficits, Normal Mood/Affect, operational communication chief II-XII Norm as Tested Skin: Normal Color, Warm/Dry Progress/Results/Core Measures Suspected Sepsis SIRS Temperature: Pulse: Respiratory Rate: Blood Pressure / Mean: Results/Orders Vital Signs/I&O Capillary Refill : Progress Note : Progress Note Patient with lower extremity edema. Discussed with her initial treatment of low-salt diet, compression stockings, elevation of legs. Did ask her to try to follow-up with her primary care provider sooner to see that the initial measures are improving if not primary care provider can check labs, consider starting Lasix, evaluate for diabetes, etc. Patient stable and discharged home Departure Impression Primary Impression: Bilateral lower extremity edema Disposition: 01 HOME, SELF-CARE Condition: Stable Departure-Patient Inst. Referrals: FABY MCCARTHY APRN (PCP) Primary Care Physician [facility]/[place] (Family) Primary Care Physician Patient Instructions: Dependent Edema (DC), Low Salt Diet Add. Discharge Instructions: 15 mm compression stocking please wear during the day while up and ambulating. You may remove at night. please call [facility] to request an appointment sooner. ROSIBEL ESPINO DO Jul 13, 2022 21:50
[2022-07-13 21:55] VITALS: BP 187/96
== END 2022-07-13 22:22 | disposition home or self-care (01) ==
LOC: EDUNIT# 21:23 → ER FS 21:24
DX: R60.0 Localized edema (principal); Z79.899 Other long term (current) drug therapy
CPT/HCPCS: 99281

== ENCOUNTER 2022-11-26 19:04 | Emergency (ER) | payer MEDICARE ==
[~2022-11-26] VITALS: Ht 157.4 cm; Wt 90.3 kg
--- NOTE | 2022-11-26 19:56 | Diagnostic Imaging Report ---
INDICATION: Cough Single AP view of chest is obtained. COMPARISON: 01/24/2019 Heart size and pulmonary vascularity are within normal limits. There are mildly prominent interstitial markings in the lungs which could represent minimal edema or pneumonitis. Otherwise there is no evidence of pneumothorax, consolidation or pleural fluid. IMPRESSION: Probable mild interstitial edema or pneumonitis without other evidence of acute abnormality. Dictated by: Dictated on workstation # [id number]
[2022-11-26] MEDS ORDERED: RX-ALBUTEROL INHALER 8.5 GM HFA (PROAIR) IH STA (20:30)
[2022-11-26] MEDS ORDERED: GUAI120013 PO (20:45)
--- NOTE | 2022-11-26 20:45 | ED Cough/URI ---
General Chief Complaint: Cough/Cold/Flu Symptoms Stated Complaint: COUGH Nursing Triage Note: Patient was seen in urgent care on sunday for a persistent cough. Patient was given tesslon pearles, prednisone and an antibiotic. Patient last took her tesslon pearles this AM and she is supposed to be taking them 3 times a day. Patient would like to be checked out. Source: patient History of Present Illness Date Seen by Provider: Nov 26, 2022 Time Seen by Provider: 19:30 Initial Comments 57-year-old female presenting with several days of cough and congestion. She states that the cough is keeping her up at nights. She was seen Sunday in the urgent care and they told her she had bronchitis. They started her on Tessalon Perles, prednisone, Z-Bib. She states that the prednisone was making her heart race so she stopped it. She did not feel the Tessalon Perles were helping her. She denies having fever or chills but states that the cough is continuing and not improving. Timing/Duration: getting worse (Over the last 3 or 4 days) Severity/Quality: severe, dry cough Prior Episodes/Possible Cause: occasional episodes Modifying Factors: Worse With Activity Associated Symptoms: chest pain/soreness, cough, nasal congestion, nasal drainage, shortness of breath Allergies and Home Medications Allergies Coded Allergies: No Known Drug Allergies (Unverified , 09/25/18) Patient Home Medication List Home Medication List Reviewed: Yes Amoxicillin/Potassium Clav (Amox Tr-K Clv 875-125 mg Tab) 1 Each Tablet, 1 EACH PO BID Prescribed by: JORJE KUMAR on 09/25/182112 Guaifenesin (Mucinex) 1,200 Mg Tab.er.12h, 1,200 MG PO BID Prescribed by: JORJE KUMAR on 11/26/222044 Ibuprofen (Ibuprofen) 800 Mg Tablet, 800 MG PO Q8H PRN for PAIN Prescribed by: JORJE KUMAR on 12/26/211818 Methocarbamol (Methocarbamol) 750 Mg Tablet, 1,500 MG PO Q8H PRN for muscle spasm/groin pain Prescribed by: JORJE KUMAR on 12/26/211818 Promethazine/Phenyleph/Codeine (Mmthixklvvec-BM-Jcwgqwr Syrup) 118 Ml Syrup, 5 ML PO Q6H PRN for COUGH Prescribed by: JORJE KUMAR on 02/02/19 0012 Tramadol HCl (Tramadol HCl) 50 Mg Tablet, 50 MG PO Q6H PRN for PAIN-SEVERE (8- 10) Prescribed by: JORJE KUMAR on 12/26/21 1819 Review of Systems Review of Systems Constitutional: see HPI EENTM: see HPI Respiratory: see HPI Cardiovascular: see HPI Gastrointestinal: no symptoms reported Genitourinary: no symptoms reported Musculoskeletal: no symptoms reported Skin: no symptoms reported Past Lziokby-Zxvkdx-Ymdmyc Hx Patient Social History Tobacco Use?: Yes Tobacco type used: Cigarettes Smoking Status: Current Everyday Smoker Substance use?: No Alcohol Use?: No Pt feels they are or have been: No Seasonal Allergies Seasonal Allergies: No Past Medical History Surgery/Hospitalization HX: Hypercholesterolemia, Hypertension Surgeries: Yes Orthopedic Respiratory: No Cardiac: No Neurological: No Genitourinary: No Gastrointestinal: No Musculoskeletal: No Endocrine: No HEENT: No Cancer: No Psychosocial: No Integumentary: No Blood Disorders: No Physical Exam Vital Signs - First Documented 11/26/22 19:14 Temp 37.0 Pulse 86 Resp 16 B/P (MAP) 180/92 (121) Pulse Ox 97 O2 Delivery Room Air Capillary Refill : Less Than 3 Seconds Height: 5'2.00" Weight: 170lbs. oz. 77.526302pd; 36.00 BMI Method:Stated General Appearance: WD/WN, no apparent distress Respiratory: no respiratory distress, no accessory muscle use, decreased breath sounds, wheezing (End expiratory wheezing all niño. Prolonged expiratory phase) Cardiovascular: normal peripheral pulses, regular rate, rhythm Neurologic/Psychiatric: alert, oriented x 3 Skin: normal color, warm/dry Progress/Results/Core Measures Suspected Sepsis SIRS Temperature: Pulse: 86 Respiratory Rate: 16 Blood Pressure 180 /92 Mean: 121 Results/Orders Lab Results Laboratory Tests Test 11/26/22 19:15 Range/Units Influenza Type A (RT-PCR) Not Detected Not Detecte Influenza Type B (RT-PCR) Not Detected Not Detecte SARS-CoV-2 RNA (RT-PCR) Not Detected Not Detecte My Orders Orders - JORJE KUMAR MD Covid 19 Inhouse Test (11/26/22 19:18) Chest 1 View Ap/Pa Only (11/26/22 19:40) Influenza A And B By Pcr (11/26/22 19:18) Nursing Communication (Order) (11/26/22 20:30) Rx-Albuterol Inhaler (Rx-Ventolin Hfa In (11/26/22 20:30) Vital Signs/I&O 11/26/22 11/26/22 19:14 20:47 Temp 37.0 Pulse 86 82 Resp 16 16 B/P (MAP) 180/92 (121) 164/86 Pulse Ox 97 98 O2 Delivery Room Air Room Air Capillary Refill : Less Than 3 Seconds Blood Pressure Mean: 121 Progress Note #1: Progress Note Obtain nasal swab to check for flu and COVID. 1 view chest x-ray to look for acute process in her lungs. Progress Note #2: Progress Note COVID and flu were both negative. The 1 view chest x-ray showed bilateral perihilar infiltrate for possible infectious process. Counseled patient that in the clinic some early pneumonia and have her continue taking the Z-Bib. Added Mucinex to try and help with cough and congestion. Use albuterol inhaler 2 puffs every 4-6 hours as needed for cough and shortness of breath. Use this with a spacer to try and get more the medicine in her lungs. Diagnostic Imaging Diagonstic Imaging: Xray Plain Films/CT/US/NM/MRI: chest Comments [facility] [place] NAME: SHY DEVINE [facility] REC#: [id number] PT STATUS: DEP ER : 1965 PHYSICIAN: JORJE KUMAR MD ADMIT DATE: 11/26/22/ER FS Signed Date of Exam:11/26/22 CHEST 1 VIEW AP/PA ONLY INDICATION: Cough Single AP view of chest is obtained. COMPARISON: 01/24/2019 Heart size and pulmonary vascularity are within normal limits. There are mildly prominent interstitial markings in the lungs which could represent minimal edema or pneumonitis. Otherwise there is no evidence of pneumothorax, consolidation or pleural fluid. IMPRESSION: Probable mild interstitial edema or pneumonitis without other evidence of acute abnormality. Dictated by: Dictated on workstation # [id number] Dict: 11/26/22 1949 Trans: 11/26/22 [address] [facility] [id number] Interpreted by: POLA HARTMAN MD Electronically signed by: POLA HARTMAN MD 11/26/220 Reviewed: Reviewed by Me Departure Impression Primary Impression: Acute interstitial pneumonia Additional Impressions: Cough Qualified Codes: R05.1 - Acute cough Upper respiratory infection with cough and congestion Disposition: HOME, SELF-CARE Condition: Stable Departure-Patient Inst. Decision time for Depature: 20:43 Referrals: FABY MCCARTHY APRN (PCP) Primary Care Physician [facility]/[place] (Family) Primary Care Physician Patient Instructions: Cough, Adult ED, How to Use a Metered Dose Inhaler ED, How to Use a Spacer, Pneumonia, Adult ED, Upper Respiratory Infection ED Add. Discharge Instructions: Continue to take your antibiotic until gone. Take Mucinex to help thin out secretions and cough. Stay well-hydrated and drink plenty of fluids. Use a humidifier at the bedside to help with cough and congestion. Use the spacer with the inhaler to take 2 puffs every 4-6 hours as needed for cough and shortness of breath. Check back with the clinic if continuing to have symptoms. All discharge instructions reviewed with patient and/or family. Voiced understanding. Scripts Guaifenesin (Mucinex) 1,200 Mg Tab.er.12h 1200 MG PO BID for Cough for 7 Days, #14 TAB 0 Refills Prov: JORJE KUMAR MD 11/26/22 JORJE KUMAR MD Nov 26, 2022 20:45
[2022-11-26 20:47] VITALS: BP 164/86
== END 2022-11-26 20:48 | disposition home or self-care (01) ==
LOC: EDUNIT# 19:04 → ER FS 19:05
DX: J84.9 Interstitial pulmonary disease, unspecified (principal); J06.9 Acute upper respiratory infection, unspecified; F17.210 Nicotine dependence, cigarettes, uncomplicated; Z20.822 Contact with and (suspected) exposure to COVID-19
CPT/HCPCS: 71045; 87636